=== PATIENT | male | born 1950 | race Caucasian/White ===

== ENCOUNTER 2019-03-27 13:02 | Emergency (ER) | payer OTHER ==
[~2019-03-27] VITALS: Ht 188 cm; Wt 127.0 kg
[2019-03-27 13:15] VITALS: BP_SYST 157
--- NOTE | 2019-03-27 13:55 | NUR ---
Patient to ER bed 03 to gown for evaluation. Side rails up.
--- NOTE | 2019-03-27 14:00 | NUR ---
pt feel on dresser. Pt is currently c/o left sided back pain 01/11. Will conitnue to monitor
--- NOTE | 2019-03-27 14:10 | NUR ---
ER at bedside examining patient.
[2019-03-27] MEDS ORDERED: ONDANSETRON 4 MG ODT TAB PO ONE (14:15)
[2019-03-27] MEDS ORDERED: HYDROcodone/ACETAMIN 7.5-325 MG TAB PO ONE (14:15)
--- NOTE | 2019-03-27 14:37 | NUR ---
pt getting an x-ray at the bedside.
[2019-03-27] MEDS ORDERED: BACITRACIN 1 GM OINT TP ONE (14:55)
--- NOTE | 2019-03-27 15:07 | NUR ---
pt reports pain has improved /10
[2019-03-27] MEDS ORDERED: DIPH-TET-PERTUS Vaccine 0.5 ML VIAL (ADACEL) I.M. ONE (15:30)
--- NOTE | 2019-03-27 15:49 | NUR ---
Patient given written and verbal discharge instructions and verbalizes understanding. ER MD discussed with patient the results and treatment provided. Patient in stable condition. ID arm band removed. Rx of iBUPROFEN, Bacitrain, and Mcgrann given. Patient educated on pain management and to follow up with PMD. Pain Scale 3/10. Opportunity for questions provided and answered. Medication side effect fact sheet provided.
[2019-03-27 15:55] VITALS: BP_SYST 157
[2019-03-27] MEDS ORDERED: IOHEXOL 350 mgI/mL, 150 ML INFUS..BTL IV ONE (17:16)
[2019-03-27] MEDS ORDERED: BACITRACIN ZINC 15 GM TOPICAL OINTMENT TP SCH (21:00)
== END 2019-03-27 15:49 | disposition home or self-care (01) ==
LOC: SED 13:02
DX: S22.31XA Fracture of one rib, right side, initial encounter for closed fracture (principal); S20.311A Abrasion of right front wall of thorax, initial encounter; S30.811A Abrasion of abdominal wall, initial encounter; W11.XXXA Fall on and from ladder, initial encounter; Y93.89 Activity, other specified; Y92.89 Other specified places as the place of occurrence of the external cause; Y99.8 Other external cause status
CPT/HCPCS: 71100; 90471; 90715; 99283; Q0162; Q9967

== ENCOUNTER 2021-08-04 16:59 | Emergency (ER) | payer OTHER ==
[~2021-08-04] VITALS: Ht 188 cm; Wt 133.8 kg
[2021-08-04 17:08] VITALS: BP_SYST 146
[2021-08-04] MEDS ORDERED: OXYCODONE/ACETAMINOPHEN 5-325 TABLET PO ONE (17:30)
[2021-08-04] MEDS ORDERED: ERYEYE EACH EYE (19:39)
[2021-08-04] MEDS ORDERED: OXYC-128 PO (19:39)
[2021-08-04] MEDS ORDERED: ERYTHROMYCIN BASE 0.5% EYE OINT...G. OP ONE (19:45)
[2021-08-04] MEDS ORDERED: IBUP-1969 PO (19:45)
[2021-08-04 19:57] VITALS: BP_SYST 125
== END 2021-08-04 19:57 | disposition home or self-care (01) ==
LOC: SED 16:59
DX: H10.213 Acute toxic conjunctivitis, bilateral (principal); I10 Essential (primary) hypertension; Z79.899 Other long term (current) drug therapy
CPT/HCPCS: 99284